=== PATIENT | male | born 1995 | race Caucasian/White ===

== ENCOUNTER 2018-07-16 22:31 | Emergency (ER) | payer OTHER ==
[2018-07-16 22:55] VITALS: BP 140/81
--- NOTE | 2018-07-16 23:20 | EDPHY ---
H & P Time Seen by Provider: 07/16/18 23:15 HPI/ROS: CHIEF COMPLAINT: Dental pain HISTORY OF PRESENT ILLNESS: 23-year-old male via private vehicle complaining of pain to tooth 24. Prior history of fracture to this is tooth, call his dentist today (Monday) who called in a prescription for amoxicillin which he has been taking him but is complaining of pain. He has an appointment with his dentist in the morning a PRIMARY CARE PROVIDER: REVIEW OF SYSTEMS: 10 systems reviewed and are negative with exception of illness mentioned in the history of present illness PHYSICAL EXAM (Prior to examination, patient consented to physical exam, hands were washed and my usual and customary physical exam procedures followed) 1) GENERAL: Well-developed, well-nourished, alert and oriented. Appears to be in no acute distress. 2) HEAD: Normocephalic 3) HEENT: sclera anicteric . No trismus no drooling. Tender to percussion tooth 24. Floor of mouth soft with no induration, no evidence of [place]'s angina. Submandibular and submental spaces are soft no induration. Symmetrical faces. Nasolabial fold symmetrical. 4) LUNGS: Breathing comfortably. Smoking Status: Never smoked Constitutional: Initial Vital Signs Temperature (C) 37.0 C 07/16/18 22:52 Heart Rate 49 L 07/16/18 22:52 Respiratory Rate 18 07/16/18 22:52 Blood Pressure 140/81 H 07/16/18 22:52 O2 Sat (%) 99 07/16/18 22:52 O2 Delivery Mode Room Air Allergies/Adverse Reactions: No Known Allergies Allergy (Unverified 07/16/18 22:55) Home Medications: Medication Instructions Recorded Amoxicillin Trihydrate 500 mg PO Q8H 07/16/18 [Amoxicillin] MDM/Departure - MDM ED Course/Re-evaluation: No evidence of [place]'s angina or deep space infection. Recommend he keep his appointment with his dentist in the morning. Discharged with [facility]. He feels comfortable being discharged. No indication for imaging at this time. I saw this patient independently based on established practice protocols. Care of patient under supervision of secondary supervising physician Dr Mcdowell. - Depart Disposition: Home, Routine, Self-Care Clinical Impression: Pain, dental Condition: Good Instructions: Toothache (ED), Hydrocodone/Acetaminophen (By mouth) Additional Instructions: Return to the ER immediately if you cannot swallow, have drooling, fevers, neck stiffness, cannot open your jaw, or any other symptoms that concern you. Referrals: see,your dentist in the morning [Other] - As per Instructions
[2018-07-16] MEDS ORDERED: HYDROCOD/APAP 5/325 PREPACK#6 BTL TAKEHOME ONE (23:21)
== END 2018-07-16 23:34 | disposition home or self-care (01) ==
DX: K08.89 Other specified disorders of teeth and supporting structures (principal)